=== PATIENT | female | born 1940 | race Caucasian/White ===

== ENCOUNTER 2021-12-09 06:24 | Observation (INO) | payer MEDICARE ==
[2021-12-09 07:58] LABS: #Basophils 0.1 thou/uL (0.0-0.2); #Monocytes 0.7 thou/uL (0.11-0.59); #Neutrophils 13.8 thou/uL (1.40-6.50); %Basophils 0.4 % (0.0-1.0); %Eosinophils 0.2 % (0.0-10.0); %Lymphocytes 6.3 % (21.0-51.0); %Monocytes 4.8 % (0.0-10.0); %Neutrophils 88.4 % (42.0-75.0); Hemoglobin 12.4 g/dL (12.0-16.0); Mean Corpuscular HGB CONC 33.5 g/dL (32.0-36.0); Mean Corpuscular Hemoglobin 34.1 pg (27.0-31.0); Mean Platelet Volume 8.9 fL (7.4-10.4); Platelet Count 259 thou/uL (130-400); RBC Distribution Width 11.1 % (11.5-14.5); Red Blood Cell (RBC) Count 3.64 mill/uL (4.20-5.40); White Blood Cell (WBC) Count 15.6 thou/uL (4.8-10.8)
[2021-12-09] MEDS ORDERED: Acetaminophen 500 MG TAB ONE (08:03)
[2021-12-09] MEDS ORDERED: Boostrix 0.5 ML (Tdap) VIAL ONE (08:03)
[2021-12-09 08:09] LABS: PTT 24.4 sec (22.9-36.1); Prothrombin Time 13.6 sec (12.0-14.7)
[2021-12-09 09:24] LABS: ALT (SGPT) 9 U/L (8-55); AST (SGOT) 13 U/L (5-34); Albumin 3.9 g/dL (3.4-4.8); Alkaline Phosphatase 87 U/L (40-110); Anion Gap 22 mmol/L (10-20); BUN (Urea Nitrogen) 17 mg/dL (9.8-20.1); Bilirubin, Total 0.3 mg/dL (0.2-1.2); Calc. Creatinine Clearance 0 mL/min (70-130); Carbon Dioxide 18 mmol/L (23-31); Chloride 101 mmol/L (98-107); Globulin 2.9 g/dL (2.4-3.5); Glucose 137 mg/dL (83-110); Potassium 3.6 mmol/L (3.5-5.1); Protein, Total 6.8 g/dL (5.8-8.1); Sodium 137 mmol/L (136-145)
[2021-12-09] MEDS ORDERED: Acetaminophen 325 MG TAB PO PRN (10:25)
[2021-12-09] MEDS ORDERED: Ondansetron PF 4 MG/2 ML Vial IVP PRN (10:25)
[2021-12-09] MEDS ORDERED: Lorazepam 2 MG/ML VIAL SLOW IVP PRN (10:27)
[2021-12-09] MEDS ORDERED: Lactated Ringer's 1,000 ML IV SCH (10:30)
[2021-12-09 11:05] LABS: Troponin I Less than 0.010 ng/mL (< 0.028)
[2021-12-09 15:14] LABS: Troponin I Less than 0.010 ng/mL (< 0.028)
[2021-12-09 15:51] VITALS: BMI 27.0
[2021-12-09] MEDS ORDERED: FLU VACC QS2021-22(65YR UP)/PF 240 MCG/0.7 ML SYRINGE IM ONE (16:30)
[2021-12-09] MEDS: Verapamil 120 MG TAB PO SCH (20:08)
[2021-12-10 04:53] LABS: Anion Gap 8 mmol/L (10-20); BUN (Urea Nitrogen) 13 mg/dL (9.8-20.1); Calc. Creatinine Clearance 83 mL/min (70-130); Calcium 8.4 mg/dL (7.8-10.44); Carbon Dioxide 25 mmol/L (23-31); Chloride 108 mmol/L (98-107); Glucose 99 mg/dL (83-110); Sodium 137 mmol/L (136-145)
[2021-12-10 05:08] LABS: Band 1 % (5-11); Hemoglobin 10.3 g/dL (12.0-16.0); Hypochromia SLIGHT = 6-15 cells (100X) (0-5/hpf); Lymphocytes 21 % (21-51); MDiff Complete? YES; Macrocytosis SLIGHT = 6-15 cells (100X) (0-5/hpf); Mean Corpuscular HGB CONC 34.2 g/dL (32.0-36.0); Mean Corpuscular Hemoglobin 34.6 pg (27.0-31.0); Mean Platelet Volume 9.4 fL (7.4-10.4); Monocytes 2 % (0-10); Neutrophil 76 % (42-75); Platelet Count 217 thou/uL (130-400); Platelet Morphology Comment Appears Adequate; RBC Distribution Width 11.1 % (11.5-14.5); Red Blood Cell (RBC) Count 2.97 mill/uL (4.20-5.40); White Blood Cell (WBC) Count 7.1 thou/uL (4.8-10.8)
[2021-12-10] MEDS: Verapamil 120 MG TAB PO SCH (07:40)
[2021-12-10] MEDS ORDERED: Folic Acid 1 MG TAB PO SCH (09:00)
[2021-12-10] MEDS ORDERED: Tamsulosin HCl 0.4 MG CAP PO SCH (09:00)
[2021-12-10] MEDS ORDERED: Furosemide 20 MG TAB PO SCH (09:00)
[2021-12-10] MEDS ORDERED: Thiamine 100 MG TAB PO SCH (09:00)
[2021-12-10] MEDS ORDERED: Losartan 25 MG TAB PO SCH (09:00)
[2021-12-10] MEDS ORDERED: Multivit, Therapeutic 1 TAB PO SCH (09:00)
[2021-12-10 11:49] LABS: SARS-CoV-2 PCR by NAA Indeterminate (NotDetected)
[2021-12-10 12:49] VITALS: BP 148/65; TEMP 97.5
[2021-12-10] MEDS ORDERED: Fioricet 325/50/40 mg Tablet PO SCH (15:15)
== END 2021-12-10 16:23 | disposition home health service (06) ==
LOC: ERS 06:24 → ERHOLD 10:13 → 2SW 15:27
PROVIDERS: ADMIT Internal Medicine; ATTEND Physician Assistant Medical
DX: R55 Syncope and collapse (principal); D75.89 Other specified diseases of blood and blood-forming organs; I10 Essential (primary) hypertension; R04.0 Epistaxis; M43.12 Spondylolisthesis, cervical region; M25.78 Osteophyte, vertebrae; M48.02 Spinal stenosis, cervical region; I08.1 Rheumatic disorders of both mitral and tricuspid valves; Z79.810 Long term (current) use of selective estrogen receptor modulators (SERMs); Z79.899 Other long term (current) drug therapy; Z20.822 Contact with and (suspected) exposure to COVID-19; W19.XXXA Unspecified fall, initial encounter
CPT/HCPCS: 70450; 70486; 71045; 72125; 73030; 80048; 80053; 80307; 84484 ×2; 85007; 85025; 85027; 85610; 85730; 90471; 90715; 93005; 93306; 94760; 97139 ×2; 97530; 99285; G0378 ×3; U0003; U0005; 36415; 36416; J7120

== ENCOUNTER 2022-11-15 04:17 | Inpatient (IN) | payer MEDICARE ==
[2022-11-15] MEDS ORDERED: Acetaminophen 500 MG TAB ONE (04:30)
[2022-11-15] MEDS ORDERED: Fentanyl 100 MCG/2 ML VIAL ONE (05:49)
[2022-11-15 05:51] LABS: #Basophils 0.1 thou/uL (0.0-0.2); #Eosinphils 0.1 thou/uL (0.0-0.7); #Lymphocytes 1.8 thou/uL (1.20-3.40); #Monocytes 0.5 thou/uL (0.11-0.59); #Neutrophils 5.9 thou/uL (1.40-6.50); %Basophils 0.9 % (0.0-1.0); %Eosinophils 0.8 % (0.0-10.0); %Lymphocytes 21.5 % (21.0-51.0); %Monocytes 5.9 % (0.0-10.0); Hemoglobin 13.7 g/dL (12.0-16.0); Mean Corpuscular HGB CONC 33.9 g/dL (32.0-36.0); Mean Corpuscular Hemoglobin 33.6 pg (27.0-31.0); Mean Corpuscular Volume 99.3 fl (78.0-98.0); Platelet Count 256 10x3/uL (130-400); RBC Distribution Width 11.5 % (11.5-14.5); Red Blood Cell (RBC) Count 4.07 mill/uL (4.20-5.40); White Blood Cell (WBC) Count 8.3 10x3/uL (4.8-10.8)
[2022-11-15 06:08] LABS: INR-International Normal Ratio 0.9; Prothrombin Time 12.5 sec (12.0-14.7)
[2022-11-15 06:09] LABS: PTT 23.2 sec (22.9-36.1)
[2022-11-15 06:12] LABS: ALT (SGPT) 9 U/L (8-55); AST (SGOT) 13 U/L (5-34); Albumin 3.9 g/dL (3.4-4.8); Alkaline Phosphatase 100 U/L (40-110); Anion Gap 14 mmol/L (10-20); BUN (Urea Nitrogen) 14 mg/dL (9.8-20.1); Bilirubin, Total 0.2 mg/dL (0.2-1.2); Calc. Creatinine Clearance 0 mL/min (70-130); Calcium 9.2 mg/dL (7.8-10.44); Carbon Dioxide 21 mmol/L (23-31); Chloride 107 mmol/L (98-107); Estimated GFR 88; Globulin 3.1 g/dL (2.4-3.5); Glucose 116 mg/dL (83-110); Potassium 4.1 mmol/L (3.5-5.1); Sodium 138 mmol/L (136-145)
[2022-11-15] MEDS ORDERED: Famotidine/PF 20 mg/2ml Vial ONE ×2 (08:57→09:29)
[2022-11-15 12:35] LABS: Troponin I Less than 0.010 ng/mL (< 0.028)
[2022-11-15 14:21] VITALS: BMI 25.3
[2022-11-15] MEDS ORDERED: Ondansetron PF 4 MG/2 ML Vial IVP PRN (14:43)
[2022-11-15] MEDS ORDERED: Ondansetron ODT 4 MG TAB PO PRN ×2 (14:43→14:57)
[2022-11-15] MEDS ORDERED: Acetaminophen 650 MG Suppository PR PRN (14:43)
[2022-11-15] MEDS ORDERED: Lorazepam 2 MG/ML VIAL IM PRN (14:57)
[2022-11-15] MEDS ORDERED: Lorazepam 1 MG TAB PO PRN (14:57)
[2022-11-15] MEDS ORDERED: Lorazepam 1 MG TAB PO SCH (15:00)
[2022-11-15] MEDS ORDERED: Electrolyte Replacement Protocol 1 EACH FS SCH (15:00)
[2022-11-15] MEDS ORDERED: Electrolyte Replacement Protocol FS PRN (15:30)
[2022-11-15 15:52] LABS: Troponin I Less than 0.010 ng/mL (< 0.028)
[2022-11-15] MEDS: Thiamine HCl 200 MG/2 ML VIAL SLOW IVP SCH (15:58)
[2022-11-15] MEDS: Acetaminophen 325 MG TAB PO PRN (18:39)
[2022-11-15 22:37] LABS: Amphetamine Not Detected (NotDetected); Barbiturates Screen Not Detected (NotDetected); Benzodiazepine Screen Not Detected (NotDetected); Cocaine Metabolite Screen Not Detected (NotDetected); Methadone Not Detected (NotDetected); Methamphetamine Not Detected (NotDetected); Opiate Screen Not Detected (NotDetected); Oxycodone Screen Not Detected (NotDetected); Phencyclidine (PCP) Not Detected (NotDetected); THC/Cannabinoid Screen Not Detected (NotDetected); Tricyclic Screen Not Detected (NotDetected)
[2022-11-15] MEDS ORDERED: Senokot S 8.6-50 MG TAB PO PRN (23:54)
[2022-11-16] MEDS: Acetaminophen 325 MG TAB PO PRN (00:04)
[2022-11-16 06:21] LABS: #Eosinphils 0.1 thou/uL (0.0-0.7); #Lymphocytes 2.1 thou/uL (1.20-3.40); #Monocytes 0.7 thou/uL (0.11-0.59); #Neutrophils 5.5 thou/uL (1.40-6.50); %Basophils 0.2 % (0.0-1.0); %Eosinophils 0.6 % (0.0-10.0); %Lymphocytes 24.7 % (21.0-51.0); %Monocytes 8.3 % (0.0-10.0); %Neutrophils 66.2 % (42.0-75.0); Hemoglobin 11.5 g/dL (12.0-16.0); Mean Corpuscular HGB CONC 34.2 g/dL (32.0-36.0); Mean Corpuscular Hemoglobin 33.7 pg (27.0-31.0); Mean Corpuscular Volume 98.6 fl (78.0-98.0); Platelet Count 206 10x3/uL (130-400); RBC Distribution Width 11.3 % (11.5-14.5); Red Blood Cell (RBC) Count 3.41 mill/uL (4.20-5.40); White Blood Cell (WBC) Count 8.3 10x3/uL (4.8-10.8)
[2022-11-16 06:39] LABS: Anion Gap 9 mmol/L (10-20); BUN (Urea Nitrogen) 11 mg/dL (9.8-20.1); Calc. Creatinine Clearance 80 mL/min (70-130); Calcium 8.6 mg/dL (7.8-10.44); Carbon Dioxide 23 mmol/L (23-31); Chloride 109 mmol/L (98-107); Estimated GFR 91; Glucose 105 mg/dL (83-110); Sodium 137 mmol/L (136-145)
[2022-11-16] MEDS: Folic Acid 1 MG TAB PO SCH (09:13)
[2022-11-16] MEDS: Multivit, Therapeutic 1 TAB PO SCH (09:13)
[2022-11-16 10:57] LABS: Syphilis Antibody Nonreactive (Nonreactive); Syphilis Antibody Index 0.01 S/CO (<1.00 Non-Reactive)
[2022-11-16] MEDS ORDERED: Lorazepam 1 MG TAB PO PRN (14:57)
[2022-11-16] MEDS: Thiamine HCl 200 MG/2 ML VIAL SLOW IVP SCH (16:30)
[2022-11-17] MEDS: Acetaminophen 325 MG TAB PO PRN (04:49)
[2022-11-17] MEDS ORDERED: Midazolam HCl 2 mg/2 ml Vial ONE (06:22)
[2022-11-17] MEDS ORDERED: fentaNYL PF 100 MCG/2 ML SYRINGE ONE (06:22)
[2022-11-17] MEDS ORDERED: Bupivacaine PF 0.5% 30 ML VIAL ONE (06:45)
[2022-11-17] MEDS ORDERED: PROPOFOL 200 MG/20 ML VIAL ONE (07:14)
[2022-11-17] MEDS ORDERED: Lidocaine 1% PF 5 ML VIAL ONE (07:14)
[2022-11-17] MEDS ORDERED: Dexamethasone 20 MG/5 ML VIAL ONE (07:14)
[2022-11-17] MEDS ORDERED: Ondansetron PF 4 MG/2 ML Vial ONE (07:14)
[2022-11-17] MEDS ORDERED: Bupivacaine HCl 0.5%/Epinephrine 1:200,000/PF 30 ml Vial ONE (07:14)
[2022-11-17] MEDS ORDERED: CEFAZOLIN 2 GM VIAL ONE (07:22)
[2022-11-17] MEDS ORDERED: Sodium Chloride 0.9% 100 ML ONE (07:22)
[2022-11-17] MEDS ORDERED: Ropivacaine 0.2% 550 ML 550 ML NERVE BLCK SCH (08:30)
[2022-11-17] MEDS ORDERED: Promethazine HCl 25 MG/ML VIAL IM PRN ×2 (08:30→09:26)
[2022-11-17] MEDS ORDERED: Ondansetron PF 4 MG/2 ML Vial IVP PRN (08:30)
[2022-11-17] MEDS ORDERED: Zolpidem Tartrate 5 MG TAB PO PRN (08:30)
[2022-11-17] MEDS ORDERED: traMADol HCl 50 MG TAB PO PRN ×2 (08:30)
[2022-11-17] MEDS ORDERED: HYDROcodone/Acetaminophen 10/325 mg Tablet PO PRN ×2 (08:30)
[2022-11-17] MEDS ORDERED: Ketorolac Tromethamine 30 MG/ML VIAL IVP PRN (09:26)
[2022-11-17] MEDS ORDERED: Ondansetron HCl/PF 4 MG/2 ML Vial IVP PRN (09:26)
[2022-11-17] MEDS ORDERED: Ketorolac Tromethamine 30 MG/ML VIAL ONE (09:29)
[2022-11-17] MEDS ORDERED: CEFAZOLIN 2 GM in Sodium Chloride 0.9% 100 ML IVPB SCH (11:00)
[2022-11-17] MEDS ORDERED: Furosemide 20 MG TAB PO PRN (14:54)
[2022-11-17] MEDS ORDERED: Fioricet 325/50/40 mg Tablet PO PRN (14:54)
[2022-11-17] MEDS ORDERED: Lorazepam 1 MG TAB PO PRN (14:57)
[2022-11-17] MEDS ORDERED: Lorazepam 0.5 MG TAB PO SCH (15:00)
[2022-11-17] MEDS: Multivit, Therapeutic 1 TAB PO SCH (15:32)
[2022-11-17] MEDS: Folic Acid 1 MG TAB PO SCH (15:33)
[2022-11-17] MEDS: Thiamine HCl 200 MG/2 ML VIAL SLOW IVP SCH (15:33)
[2022-11-17] MEDS: CEFAZOLIN 2 GM in Sodium Chloride 0.9% 100 ML IVPB SCH ×2 (15:34→21:07)
[2022-11-17] MEDS: Verapamil 120 MG TAB PO SCH (21:33)
[2022-11-18 07:12] LABS: #Eosinphils 0.1 thou/uL (0.0-0.7); #Lymphocytes 2.4 thou/uL (1.20-3.40); #Monocytes 0.9 thou/uL (0.11-0.59); #Neutrophils 6.9 thou/uL (1.40-6.50); %Basophils 0.1 % (0.0-1.0); %Eosinophils 0.8 % (0.0-10.0); %Monocytes 9.1 % (0.0-10.0); Hemoglobin 10.5 g/dL (12.0-16.0); Mean Corpuscular HGB CONC 33.7 g/dL (32.0-36.0); Mean Corpuscular Hemoglobin 33.8 pg (27.0-31.0); Mean Platelet Volume 9.3 fL (7.4-10.4); Platelet Count 218 10x3/uL (130-400); RBC Distribution Width 11.2 % (11.5-14.5); White Blood Cell (WBC) Count 10.3 10x3/uL (4.8-10.8)
[2022-11-18 07:32] LABS: Anion Gap 10 mmol/L (10-20); BUN (Urea Nitrogen) 19 mg/dL (9.8-20.1); Calc. Creatinine Clearance 74 mL/min (70-130); Calcium 8.2 mg/dL (7.8-10.44); Carbon Dioxide 23 mmol/L (23-31); Chloride 106 mmol/L (98-107); Estimated GFR 89; Glucose 89 mg/dL (83-110); Potassium 3.7 mmol/L (3.5-5.1); Sodium 135 mmol/L (136-145)
[2022-11-18] MEDS: Polyethylene Glycol 3350 17 GM Packet PO SCH (08:51)
[2022-11-18] MEDS: Raloxifene 60 MG TAB PO SCH (08:52)
[2022-11-18] MEDS: Verapamil 120 MG TAB PO SCH ×2 (08:52→21:03)
[2022-11-18] MEDS: Multivit, Therapeutic 1 TAB PO SCH (08:52)
[2022-11-18] MEDS: Losartan 25 MG TAB PO SCH (08:52)
[2022-11-18] MEDS: Folic Acid 1 MG TAB PO SCH (08:52)
[2022-11-18] MEDS: Thiamine 100 MG TAB PO SCH (08:52)
[2022-11-18] MEDS: Tamsulosin HCl 0.4 MG CAP PO SCH (08:52)
[2022-11-18] MEDS: Acetaminophen 325 MG TAB PO PRN ×2 (12:51→21:13)
[2022-11-18] MEDS ORDERED: Lorazepam 0.5 MG TAB PO PRN (14:57)
[2022-11-19] MEDS: Multivit, Therapeutic 1 TAB PO SCH (08:40)
[2022-11-19] MEDS: Folic Acid 1 MG TAB PO SCH (08:40)
[2022-11-19] MEDS: Tamsulosin HCl 0.4 MG CAP PO SCH (08:40)
[2022-11-19] MEDS: Losartan 25 MG TAB PO SCH (08:40)
[2022-11-19] MEDS: Polyethylene Glycol 3350 17 GM Packet PO SCH (08:40)
[2022-11-19] MEDS: Thiamine 100 MG TAB PO SCH (08:40)
[2022-11-19] MEDS: Verapamil 120 MG TAB PO SCH ×2 (08:40→19:54)
[2022-11-19] MEDS: Acetaminophen 325 MG TAB PO PRN ×2 (08:41→19:54)
[2022-11-19] MEDS: Raloxifene 60 MG TAB PO SCH (08:43)
[2022-11-20] MEDS: Multivit, Therapeutic 1 TAB PO SCH (08:56)
[2022-11-20] MEDS: Thiamine 100 MG TAB PO SCH (08:56)
[2022-11-20] MEDS: Polyethylene Glycol 3350 17 GM Packet PO SCH (08:56)
[2022-11-20] MEDS: Tamsulosin HCl 0.4 MG CAP PO SCH (08:56)
[2022-11-20] MEDS: Verapamil 120 MG TAB PO SCH ×2 (08:56→20:02)
[2022-11-20] MEDS: Raloxifene 60 MG TAB PO SCH (08:57)
[2022-11-20] MEDS: Folic Acid 1 MG TAB PO SCH (08:57)
[2022-11-20] MEDS: Losartan 25 MG TAB PO SCH (08:57)
[2022-11-20] MEDS ORDERED: Acetaminophen 500 MG TAB PO SCH (11:15)
[2022-11-20] MEDS: Acetaminophen 325 MG TAB PO PRN (20:02)
[2022-11-21] MEDS: Thiamine 100 MG TAB PO SCH (09:30)
[2022-11-21] MEDS: Acetaminophen 325 MG TAB PO PRN (09:30)
[2022-11-21] MEDS: Verapamil 120 MG TAB PO SCH ×2 (09:30→20:05)
[2022-11-21] MEDS: Folic Acid 1 MG TAB PO SCH (09:31)
[2022-11-21] MEDS: Losartan 25 MG TAB PO SCH (09:31)
[2022-11-21] MEDS: Polyethylene Glycol 3350 17 GM Packet PO SCH (09:32)
[2022-11-21] MEDS: Multivit, Therapeutic 1 TAB PO SCH (09:32)
[2022-11-21] MEDS: Tamsulosin HCl 0.4 MG CAP PO SCH (09:32)
[2022-11-21] MEDS: Raloxifene 60 MG TAB PO SCH (09:32)
[2022-11-21] MEDS: Furosemide 20 MG TAB PO SCH (13:50)
[2022-11-21] MEDS: Heparin 5,000 UNITS/ML VIAL SC SCH (20:07)
[2022-11-22 07:13] LABS: Anion Gap 15 mmol/L (10-20); BUN (Urea Nitrogen) 14 mg/dL (9.8-20.1); Calc. Creatinine Clearance 79 mL/min (70-130); Calcium 8.9 mg/dL (7.8-10.44); Carbon Dioxide 24 mmol/L (23-31); Chloride 102 mmol/L (98-107); Estimated GFR 90; Glucose 100 mg/dL (83-110); Sodium 137 mmol/L (136-145)
[2022-11-22 07:14] LABS: #Eosinphils 0.1 thou/uL (0.0-0.7); #Lymphocytes 1.7 thou/uL (1.20-3.40); #Monocytes 0.7 thou/uL (0.11-0.59); %Basophils 0.5 % (0.0-1.0); %Eosinophils 1.5 % (0.0-10.0); %Lymphocytes 20.1 % (21.0-51.0); %Monocytes 7.9 % (0.0-10.0); Mean Corpuscular Hemoglobin 33.8 pg (27.0-31.0); Mean Corpuscular Volume 99.5 fl (78.0-98.0); Platelet Count 282 10x3/uL (130-400); RBC Distribution Width 11.3 % (11.5-14.5); Red Blood Cell (RBC) Count 3.56 mill/uL (4.20-5.40); White Blood Cell (WBC) Count 8.6 10x3/uL (4.8-10.8)
[2022-11-22] MEDS: Heparin 5,000 UNITS/ML VIAL SC SCH (08:53)
[2022-11-22] MEDS: Verapamil 120 MG TAB PO SCH (08:54)
[2022-11-22] MEDS: Thiamine 100 MG TAB PO SCH (08:54)
[2022-11-22] MEDS: Folic Acid 1 MG TAB PO SCH (08:54)
[2022-11-22] MEDS: Losartan 25 MG TAB PO SCH (08:54)
[2022-11-22] MEDS: Furosemide 20 MG TAB PO SCH (08:54)
[2022-11-22] MEDS: Multivit, Therapeutic 1 TAB PO SCH (08:54)
[2022-11-22] MEDS: Tamsulosin HCl 0.4 MG CAP PO SCH (08:54)
[2022-11-22] MEDS: Raloxifene 60 MG TAB PO SCH (08:55)
[2022-11-22] MEDS: Polyethylene Glycol 3350 17 GM Packet PO SCH (08:55)
[2022-11-22 16:26] VITALS: BP 116/68; TEMP 98
== END 2022-11-22 17:29 | DRG 494 ==
LOC: ERS 04:17 → INTOOBSV 13:54 → T4-A 13:54 → OBSVTOIN 11-17 13:19
PROVIDERS: ADMIT Hospitalist; ATTEND Hospitalist
PROC: 0QSJ04Z Reposition Right Fibula with Internal Fixation Device, Open Approach (ICD-10-PCS; principal; 2022-11-17)
DX: S82.851A Displaced trimalleolar fracture of right lower leg, initial encounter for closed fracture (principal); Z66 Do not resuscitate; Z51.5 Encounter for palliative care; Z20.822 Contact with and (suspected) exposure to COVID-19; I10 Essential (primary) hypertension; R29.6 Repeated falls; Z60.2 Problems related to living alone; K21.9 Gastro-esophageal reflux disease without esophagitis; F10.10 Alcohol abuse, uncomplicated; K59.00 Constipation, unspecified; W18.30XA Fall on same level, unspecified, initial encounter; Y92.129 Unspecified place in nursing home as the place of occurrence of the external cause; Z71.41 Alcohol abuse counseling and surveillance of alcoholic; Z91.81 History of falling; Z88.5 Allergy status to narcotic agent; Z79.899 Other long term (current) drug therapy
CPT/HCPCS: 27810; 36415; 71045; 80048; 80053; 80306; 84484; 85025; 85610; 85730; 86780; 87811; 93005; 96374; 96375; 96376; A4306; C1713; G0378; J1100; J1644; J1885; J2250; J2405; J2704; J2795; J3010; J3411; J3490; S0020; S0028; U0003; U0005

== ENCOUNTER 2024-03-17 14:59 | Inpatient (IN) | payer MEDICARE ==
[2024-03-17 16:35] LABS: #Basophils Less than 0.03 10x3/uL (0.0-0.2); #Eosinphils Less than 0.03 10x3/uL (0.0-0.7); %Basophils 0.1 % (0.0-1.0); %Monocytes 1.3 % (0.0-10.0); %Neutrophils 92.8 % (42.0-75.0); Hematocrit 29.4 % (36.0-47.0); Hemoglobin 9.7 g/dL (12.0-16.0); Mean Corpuscular Hemoglobin 31.7 pg (27.0-31.0); Mean Corpuscular Volume 96.1 fL (78.0-98.0); Mean Platelet Volume 10.5 fL (7.4-10.4); Platelet Count 707 10x3/uL (130-400); RBC Distribution Width 13.6 % (11.5-14.5); Red Blood Cell (RBC) Count 3.06 mill/uL (4.20-5.40)
[2024-03-17 16:53] LABS: ALT (SGPT) 9 U/L (8-55); AST (SGOT) 12 U/L (5-34); Albumin 2.5 g/dL (3.4-4.8); Alkaline Phosphatase 101 U/L (40-110); Anion Gap 22 mmol/L (10-20); BUN (Urea Nitrogen) 50 mg/dL (9.8-20.1); Bilirubin, Total 0.4 mg/dL (0.2-1.2); Calc. Creatinine Clearance 0 mL/min (70-130); Calcium 9.6 mg/dL (7.8-10.44); Carbon Dioxide 19 mmol/L (23-31); Chloride 95 mmol/L (98-107); Estimated GFR 31; Globulin 4.1 g/dL (2.4-3.5); Glucose 155 mg/dL (83-110); Lipase 4 U/L (8-78); Magnesium 2.3 mg/dL (1.6-2.6); Potassium 5.4 mmol/L (3.5-5.1); Protein, Total 6.6 g/dL (5.8-8.1); Sodium 131 mmol/L (136-145)
[2024-03-17 16:57] LABS: Troponin I Less than 0.010 ng/mL (< 0.028)
[2024-03-17] MEDS ORDERED: cefTRIAXone (ROCEPHIN) 2 GM VIAL ONE (18:12)
[2024-03-17] MEDS ORDERED: Fleet Saline Enema 133 ML BOT ONE (18:13)
[2024-03-17] MEDS ORDERED: Sodium Chloride 0.9% 100 ML ONE (18:14)
[2024-03-17 18:38] LABS: Bacteria/HPF 4+ HPF (None Seen); Bilirubin Negative (Negative); Blood, Urine 2+ (Negative); CAUTI Indications for Culture Pelvic or flank pain; Clarity Extra Turbid (Clear); Glucose, Urine (Dipstick) Normal (Negative); Ketone, Urine Negative (Negative); Leukocyte 500 Leu/uL (Negative); Nitrite Negative (Negative); Protein, Urine (Dipstick) 300 mg/dL (Neg-Trace); RBC/HPF Greater than 50 HPF (0-3); Specific Gravity, Urine 1.013 (1.002-1.036); Squamous Epithelial None Seen HPF (0-3); Urobilinogen 3 mg/dL (Less than 2); WBC/HPF Greater than 50 HPF (0-3)
[2024-03-17 18:50] LABS: Urine Culture Reflex Yes Yes
[2024-03-17] MEDS ORDERED: Ondansetron PF 4 MG/2 ML Vial IVP PRN (20:20)
[2024-03-17] MEDS: Sodium Chloride 0.9% 1,000 ML IV SCH (20:24)
[2024-03-17 20:30] VITALS: BMI 18.1
[2024-03-17] MEDS: Ondansetron ODT 4 MG TAB PO PRN (20:54)
[2024-03-17] MEDS: Bisacodyl 10 MG SUPP PR SCH (22:59)
[2024-03-18 00:41] LABS: Lactic Acid 0.6 mmol/L (0.5-2.2)
[2024-03-18 05:40] LABS: #Basophils 0.03 10x3/uL (0.0-0.2); #Eosinphils Less than 0.03 10x3/uL (0.0-0.7); %Basophils 0.2 % (0.0-1.0); %Lymphocytes 7.8 % (21.0-51.0); %Monocytes 5.4 % (0.0-10.0); %Neutrophils 85.8 % (42.0-75.0); Hematocrit 25.9 % (36.0-47.0); Hemoglobin 8.2 g/dL (12.0-16.0); Mean Corpuscular HGB CONC 31.7 g/dL (32.0-36.0); Mean Corpuscular Hemoglobin 31.1 pg (27.0-31.0); Mean Corpuscular Volume 98.1 fL (78.0-98.0); Mean Platelet Volume 10.4 fL (7.4-10.4); Platelet Count 597 10x3/uL (130-400); RBC Distribution Width 13.5 % (11.5-14.5); Red Blood Cell (RBC) Count 2.64 mill/uL (4.20-5.40)
[2024-03-18] MEDS: Bisacodyl 10 MG SUPP PR SCH (05:59)
[2024-03-18 06:12] LABS: Anion Gap 18 mmol/L (10-20); BUN (Urea Nitrogen) 54 mg/dL (9.8-20.1); Calc. Creatinine Clearance 27 mL/min (70-130); Calcium 8.7 mg/dL (7.8-10.44); Carbon Dioxide 15 mmol/L (23-31); Chloride 103 mmol/L (98-107); Estimated GFR 43; Glucose 98 mg/dL (83-110); Sodium 131 mmol/L (136-145)
[2024-03-18] MEDS ORDERED: Vancomycin Dose by Levels Sliding Scale (Wt <71) FS SCH (16:15)
[2024-03-18] MEDS: Sodium Chloride 0.9% 1,000 ML IV SCH (17:07)
[2024-03-18] MEDS: Vancomycin (BATCH) 1.25 GM in Premix 1 BAG IVPB SCH (17:07)
[2024-03-18] MEDS: Ferrous Sulfate 325 MG TAB PO SCH (17:12)
[2024-03-18] MEDS: cefTRIAXone\\ROCEPHIN 1 GM in Sodium Chloride 0.9% 100 ML IVPB SCH (17:30)
[2024-03-18] MEDS ORDERED: cefTRIAXone\\ROCEPHIN 1 GM in Sodium Chloride 0.9% 100 ML IVPB SCH (18:00)
[2024-03-18] MEDS ORDERED: Calcium Carbonate + Vit D 250 MG TAB PO SCH (21:00)
[2024-03-18] MEDS ORDERED: Vancomycin 1 GM in Premix 1 BAG IVPB SCH (21:00)
[2024-03-18] MEDS: Nystatin Powder 15 GM BOT TOP SCH (21:56)
[2024-03-18] MEDS: Tamsulosin HCl 0.4 MG CAP PO SCH (21:57)
[2024-03-18] MEDS: Calcium Carbonate + Vit D 250 MG TAB PO SCH (21:57)
[2024-03-18] MEDS: Mirtazapine 15 MG TAB PO SCH (21:57)
[2024-03-18 22:25] LABS: Actual Bicarbonate (HCO3a) 19.9 mEq/L (22-28); Base Excess (BEa) -4.1 mEq/L (-2.0 to +3.0); Calcium, Ionized (arterial) 1.12 mmol/L (1.12-1.30); Carboxyhemoglobin (COHb) 1.3 gm% (0.0-3.0); Hematocrit-ABG 20 % (36.0-47.0); Hemoglobin (Hb) 6.7 g/dL (12.0-16.0); O2 Tension (PaO2), arterial 135.4 mmHg (> 60.0); Potassium - ABG Lab 4.12 mmol/L (3.70-5.30); pH, Arterial 7.425 (7.35-7.45)
[2024-03-18 22:26] LABS: Puncture Site RBA
[2024-03-18 22:40] LABS: #Basophils Less than 0.03 10x3/uL (0.0-0.2); #Eosinphils Less than 0.03 10x3/uL (0.0-0.7); %Basophils 0.1 % (0.0-1.0); %Lymphocytes 10.4 % (21.0-51.0); %Monocytes 4.8 % (0.0-10.0); %Neutrophils 83.8 % (42.0-75.0); Hematocrit 24.5 % (36.0-47.0); Hemoglobin 7.5 g/dL (12.0-16.0); Mean Corpuscular HGB CONC 30.6 g/dL (32.0-36.0); Mean Corpuscular Hemoglobin 31.6 pg (27.0-31.0); Mean Corpuscular Volume 103.4 fL (78.0-98.0); Mean Platelet Volume 10.1 fL (7.4-10.4); Platelet Count 458 10x3/uL (130-400); RBC Distribution Width 13.6 % (11.5-14.5); Red Blood Cell (RBC) Count 2.37 mill/uL (4.20-5.40)
[2024-03-18 22:55] LABS: Troponin I Less than 0.010 ng/mL (< 0.028)
[2024-03-18 23:07] LABS: ALT (SGPT) Less than 5 U/L (8-55); AST (SGOT) 13 U/L (5-34); Albumin 1.9 g/dL (3.4-4.8); Alkaline Phosphatase 69 U/L (40-110); Anion Gap 15 mmol/L (10-20); BUN (Urea Nitrogen) 51 mg/dL (9.8-20.1); Bilirubin, Total 0.2 mg/dL (0.2-1.2); Calc. Creatinine Clearance 43 mL/min (70-130); Carbon Dioxide 16 mmol/L (23-31); Chloride 107 mmol/L (98-107); Estimated GFR 74; Globulin 2.9 g/dL (2.4-3.5); Glucose 72 mg/dL (83-110); Potassium 4.6 mmol/L (3.5-5.1); Protein, Total 4.8 g/dL (5.8-8.1); Sodium 133 mmol/L (136-145)
[2024-03-19] MEDS: Albumin 25% 25 GM (100 mL) BOT IVPB SCH (01:28)
[2024-03-19 05:43] LABS: #Basophils Less than 0.03 10x3/uL (0.0-0.2); #Eosinphils Less than 0.03 10x3/uL (0.0-0.7); %Basophils 0.1 % (0.0-1.0); %Eosinophils 0.1 % (0.0-10.0); %Lymphocytes 11.6 % (21.0-51.0); %Monocytes 4.6 % (0.0-10.0); Hematocrit 22.2 % (36.0-47.0); Hemoglobin 6.4 g/dL (12.0-16.0); Mean Corpuscular HGB CONC 28.8 g/dL (32.0-36.0); Mean Corpuscular Hemoglobin 30.8 pg (27.0-31.0); Mean Corpuscular Volume 106.7 fL (78.0-98.0); Mean Platelet Volume 10.1 fL (7.4-10.4); Platelet Count 371 10x3/uL (130-400); RBC Distribution Width 13.6 % (11.5-14.5); Red Blood Cell (RBC) Count 2.08 mill/uL (4.20-5.40)
[2024-03-19] MEDS ORDERED: Albumin 25% 25 GM (100 mL) BOT IVPB SCH (06:00)
[2024-03-19 06:02] LABS: Burr Cells SLIGHT = 2-5 cells HPF (0-1); Macrocytosis SLIGHT = 6-15 cells HPF (0-5); Platelet Adequacy Comment Platelets Normal; Poikilocytosis SLIGHT = 6-15 cells HPF (0-5); Polychromasia SLIGHT = 2-3 cells HPF (0-2)
[2024-03-19 06:12] LABS: Anion Gap 15 mmol/L (10-20); BUN (Urea Nitrogen) 40 mg/dL (9.8-20.1); Calc. Creatinine Clearance 50 mL/min (70-130); Calcium 7.5 mg/dL (7.8-10.44); Carbon Dioxide 14 mmol/L (23-31); Chloride 110 mmol/L (98-107); Estimated GFR 87; Glucose 54 mg/dL (83-110); Potassium 4.3 mmol/L (3.5-5.1); Sodium 135 mmol/L (136-145)
[2024-03-19] MEDS ORDERED: Glucagon 1 MG/ML KIT IM PRN (06:44)
[2024-03-19] MEDS ORDERED: Dextrose 5% in Water 1,000 ML IV PRN (06:44)
[2024-03-19] MEDS: Digoxin 0.5 MG/2 ML AMP SLOW IVP SCH (06:53)
[2024-03-19] MEDS: Dextrose 50% Abboject 50 ML SYRINGE SLOW IVP PRN (06:57)
[2024-03-19] MEDS: Ascorbic Acid 500 mg Chewable Tablet PO SCH (08:58)
[2024-03-19] MEDS: Cyanocobalamin (Vitamin B-12) 1,000 MCG TAB PO SCH (08:58)
[2024-03-19] MEDS: Thiamine 100 MG TAB PO SCH (08:58)
[2024-03-19] MEDS: Pantoprazole DR 40 MG TAB PO SCH (08:58)
[2024-03-19] MEDS: Folic Acid 1 MG TAB PO SCH (08:58)
[2024-03-19] MEDS: Multivitamin W/ Minerals 1 TAB PO SCH (09:34)
[2024-03-19 14:40] LABS: Vancomycin, Trough 11.6 ug/mL
[2024-03-19] MEDS: Vancomycin HCl 500 MG in Sodium Chloride 0.9% 100 ML IV SCH (15:14)
[2024-03-19] MEDS ORDERED: Vancomycin HCl 500 MG in Sodium Chloride 0.9% 100 ML IV SCH (16:45)
[2024-03-19] MEDS ORDERED: Vancomycin Dose by Levels Sliding Scale (Wt <71) FS SCH (17:00)
[2024-03-19] MEDS ORDERED: Vancomycin 1 GM in Premix 1 BAG IVPB SCH (23:00)
[2024-03-20] MEDS ORDERED: Vancomycin 1 GM in Premix 1 BAG IVPB SCH ×3 (01:00→18:00)
[2024-03-20] MEDS: Acetaminophen 325 MG TAB PO PRN (04:18)
[2024-03-20 04:28] LABS: #Basophils Less than 0.03 10x3/uL (0.0-0.2); #Eosinphils Less than 0.03 10x3/uL (0.0-0.7); %Basophils 0.2 % (0.0-1.0); %Eosinophils 0.1 % (0.0-10.0); %Lymphocytes 12.1 % (21.0-51.0); %Monocytes 4.8 % (0.0-10.0); %Neutrophils 78.7 % (42.0-75.0); Hematocrit 21.1 % (36.0-47.0); Hemoglobin 6.8 g/dL (12.0-16.0); Mean Corpuscular HGB CONC 32.2 g/dL (32.0-36.0); Mean Corpuscular Hemoglobin 30.4 pg (27.0-31.0); Mean Corpuscular Volume 94.2 fL (78.0-98.0); Mean Platelet Volume 9.8 fL (7.4-10.4); Platelet Count 329 10x3/uL (130-400); RBC Distribution Width 16.9 % (11.5-14.5); Red Blood Cell (RBC) Count 2.24 mill/uL (4.20-5.40)
[2024-03-20 04:46] LABS: Anion Gap 10 mmol/L (10-20); BUN (Urea Nitrogen) 27 mg/dL (9.8-20.1); Calc. Creatinine Clearance 68 mL/min (70-130); Calcium 7.6 mg/dL (7.8-10.44); Carbon Dioxide 18 mmol/L (23-31); Chloride 116 mmol/L (98-107); Estimated GFR 93; Glucose 73 mg/dL (83-110); Potassium 3.2 mmol/L (3.5-5.1); Sodium 141 mmol/L (136-145)
[2024-03-20] MEDS ORDERED: Electrolyte Replacement Protocol 1 EACH FS SCH (05:31)
[2024-03-20] MEDS: Potassium Chloride 20 MEQ TAB PO SCH (08:33)
[2024-03-20 11:53] LABS: Iron 82 ug/dL (50-170); Iron Binding Capacity, Total 74 mcg/dL (265-497)
[2024-03-20 12:32] LABS: Ferritin 701.92 ng/mL (10-291); Vitamin B12 Greater than 2000 pg/mL (211-911)
[2024-03-20 16:32] LABS: Hematocrit 29.2 % (36.0-47.0); Hemoglobin 9.6 g/dL (12.0-16.0); Mean Corpuscular HGB CONC 32.9 g/dL (32.0-36.0); Mean Corpuscular Hemoglobin 30.4 pg (27.0-31.0); Mean Corpuscular Volume 92.4 fL (78.0-98.0); Mean Platelet Volume 10.1 fL (7.4-10.4); Platelet Count 348 10x3/uL (130-400); RBC Distribution Width 17.5 % (11.5-14.5); Red Blood Cell (RBC) Count 3.16 mill/uL (4.20-5.40)
[2024-03-20] MEDS ORDERED: Meropenem 1 GM in Sodium Chloride 0.9% 100 ML IVPB SCH (18:45)
[2024-03-20] MEDS: Meropenem 1 GM in Sodium Chloride 0.9% 100 ML IVPB SCH (18:46)
[2024-03-21] MEDS: Meropenem 1 GM in Sodium Chloride 0.9% 100 ML IVPB SCH ×2 (01:45→15:45)
[2024-03-21 04:38] LABS: #Basophils 0.04 10x3/uL (0.0-0.2); #Eosinphils Less than 0.03 10x3/uL (0.0-0.7); %Basophils 0.2 % (0.0-1.0); %Eosinophils 0.1 % (0.0-10.0); %Lymphocytes 14.1 % (21.0-51.0); %Neutrophils 79.6 % (42.0-75.0); Hematocrit 30.3 % (36.0-47.0); Hemoglobin 10.1 g/dL (12.0-16.0); Mean Corpuscular HGB CONC 33.3 g/dL (32.0-36.0); Mean Corpuscular Hemoglobin 30.3 pg (27.0-31.0); Platelet Count 370 10x3/uL (130-400); RBC Distribution Width 17.2 % (11.5-14.5); Red Blood Cell (RBC) Count 3.33 mill/uL (4.20-5.40)
[2024-03-21 05:03] LABS: Anion Gap 11 mmol/L (10-20); BUN (Urea Nitrogen) 23 mg/dL (9.8-20.1); Calc. Creatinine Clearance 75 mL/min (70-130); Calcium 7.5 mg/dL (7.8-10.44); Carbon Dioxide 16 mmol/L (23-31); Chloride 115 mmol/L (98-107); Estimated GFR 95; Glucose 72 mg/dL (83-110); Potassium 2.8 mmol/L (3.5-5.1); Sodium 139 mmol/L (136-145)
[2024-03-21] MEDS: Potassium Chloride 20 MEQ in Premix 1 BAG IVPB SCH ×2 (06:49→13:18)
[2024-03-21] MEDS ORDERED: PROPOFOL 20 ML ONE (10:41)
[2024-03-21] MEDS ORDERED: Lidocaine 1% PF 5 ML VIAL ONE (11:06)
[2024-03-21] MEDS ORDERED: PHENYLEPHRINE-NS 100 MCG/ML 10 ML SYRINGE ONE (11:06)
[2024-03-21] MEDS ORDERED: Esmolol 100 MG/10 ML VIAL ONE (11:09)
[2024-03-21] MEDS ORDERED: Iopamidol 370 76% 100 ML VIAL ONE (11:15)
[2024-03-21] MEDS: NS 0.9% w/ 20 MEQ KCL 1,000 ML/1,000 ML BAG IV SCH (18:47)
[2024-03-21] MEDS ORDERED: Potassium Chloride 20 MEQ TAB PO SCH (20:30)
[2024-03-21] MEDS: Sodium Chloride 0.9% 500 ML IV SCH ×2 (20:41→23:00)
[2024-03-21] MEDS: Albumin 25% 25 GM (100 mL) BOT IVPB SCH (20:41)
[2024-03-21] MEDS: Pantoprazole 40 MG VIAL IVP SCH (21:19)
[2024-03-21] MEDS ORDERED: NOREPINEPHRINE 8 MG/250 ML-D5W 250 ML IVPB SCH (22:00)
[2024-03-21 22:02] LABS: ALT (SGPT) 7 U/L (8-55); AST (SGOT) 22 U/L (5-34); Albumin 2.5 g/dL (3.4-4.8); Alkaline Phosphatase 61 U/L (40-110); Anion Gap 12 mmol/L (10-20); BUN (Urea Nitrogen) 17 mg/dL (9.8-20.1); Bilirubin, Total 0.6 mg/dL (0.2-1.2); Calc. Creatinine Clearance 70 mL/min (70-130); Calcium 7.1 mg/dL (7.8-10.44); Carbon Dioxide 14 mmol/L (23-31); Chloride 118 mmol/L (98-107); Estimated GFR 93; Globulin 1.9 g/dL (2.4-3.5); Glucose 88 mg/dL (83-110); Magnesium 1.4 mg/dL (1.6-2.6); Protein, Total 4.4 g/dL (5.8-8.1); Sodium 140 mmol/L (136-145)
[2024-03-21] MEDS ORDERED: Magnesium Sulfate 2 GM in Sodium Chloride 0.9% 250 ML 250 ML IVPB SCH (22:15)
[2024-03-21] MEDS: Magnesium 2 GM/50 ML(in water) 2 GM in Premix 1 BAG IVPB SCH (22:25)
[2024-03-21] MEDS: Sodium Bicarb 50 mEq/50 ML VIAL IVP SCH (22:26)
[2024-03-21 22:30] LABS: Actual Bicarbonate (HCO3v) 15.7 mEq/L (22-28); Base Excess -6.7 mEq/L (-2.0 to +3.0); Calcium, Ionized (venous) 1.01 mmol/L (1.16-1.32); Chloride (VBG) 113 mmol/L (98-106); Hematocrit-VBG 26 % (36.0-47.0); Hemoglobin (Hb) 8.8 g/dL (11.7-16.1); Potassium (VBG) 3.79 mmol/L (3.70-5.30); Sodium 138 mmol/L (133-146); pH (venous) 7.472 (7.32-7.43)
[2024-03-21 22:50] LABS: #Basophils 0.03 10x3/uL (0.0-0.2); %Basophils 0.3 % (0.0-1.0); %Eosinophils 0.3 % (0.0-10.0); %Lymphocytes 23.1 % (21.0-51.0); %Monocytes 4.4 % (0.0-10.0); Hematocrit 25.8 % (36.0-47.0); Hemoglobin 8.4 g/dL (12.0-16.0); Mean Corpuscular HGB CONC 32.6 g/dL (32.0-36.0); Mean Corpuscular Hemoglobin 30.3 pg (27.0-31.0); Mean Corpuscular Volume 93.1 fL (78.0-98.0); Mean Platelet Volume 10.1 fL (7.4-10.4); Platelet Count 254 10x3/uL (130-400); RBC Distribution Width 17.1 % (11.5-14.5); Red Blood Cell (RBC) Count 2.77 mill/uL (4.20-5.40)
[2024-03-21] MEDS: Acetaminophen 500 MG TAB PO SCH (22:58)
[2024-03-21] MEDS ORDERED: Bisacodyl 5 MG TAB PO PRN (22:59)
[2024-03-21] MEDS: Lactated Ringer's 1,000 ML IV SCH (23:11)
[2024-03-22] MEDS: Digoxin 0.5 MG/2 ML AMP SLOW IVP SCH (01:00)
[2024-03-22] MEDS: Sodium Bicarbonate 150 MEQ in Dextrose 5% in Water 1,000 ML IV SCH ×3 (01:48→03:18)
[2024-03-22] MEDS ORDERED: dilTIAZem 125 MG in Sodium Chloride 0.9% 100 ML IVPB SCH (02:00)
[2024-03-22 05:10] LABS: Legionella Urinary Ag Negative (Negative); Strep pneumo Urine Ag NEGATIVE (NEGATIVE)
[2024-03-22 05:49] LABS: #Basophils 0.04 10x3/uL (0.0-0.2); %Basophils 0.4 % (0.0-1.0); %Eosinophils 0.7 % (0.0-10.0); %Lymphocytes 21.8 % (21.0-51.0); %Monocytes 4.5 % (0.0-10.0); %Neutrophils 70.1 % (42.0-75.0); Hematocrit 27.3 % (36.0-47.0); Hemoglobin 8.9 g/dL (12.0-16.0); Mean Corpuscular HGB CONC 32.6 g/dL (32.0-36.0); Mean Corpuscular Hemoglobin 29.5 pg (27.0-31.0); Mean Corpuscular Volume 90.4 fL (78.0-98.0); Mean Platelet Volume 10.4 fL (7.4-10.4); Platelet Count 295 10x3/uL (130-400); RBC Distribution Width 17.1 % (11.5-14.5); Red Blood Cell (RBC) Count 3.02 mill/uL (4.20-5.40)
[2024-03-22 06:07] LABS: Anion Gap 11 mmol/L (10-20); BUN (Urea Nitrogen) 15 mg/dL (9.8-20.1); Calc. Creatinine Clearance 78 mL/min (70-130); Calcium 7.1 mg/dL (7.8-10.44); Carbon Dioxide 18 mmol/L (23-31); Chloride 117 mmol/L (98-107); Estimated GFR 94; Glucose 79 mg/dL (83-110); Magnesium 1.8 mg/dL (1.6-2.6); Potassium 3.6 mmol/L (3.5-5.1); Sodium 142 mmol/L (136-145)
[2024-03-22] MEDS: Magnesium 2 GM/50 ML(in water) 2 GM in Premix 1 BAG IVPB SCH (06:36)
[2024-03-22] MEDS: Ferrous Sulfate 325 MG TAB PO SCH (08:55)
[2024-03-22] MEDS: Verapamil 120 MG TAB PO SCH (09:11)
[2024-03-22] MEDS: Metoprolol Tartrate 25 MG TAB PO SCH (09:12)
[2024-03-22 20:24] LABS: Anion Gap 13 mmol/L (10-20); BUN (Urea Nitrogen) 13 mg/dL (9.8-20.1); Calc. Creatinine Clearance 75 mL/min (70-130); Calcium 7.2 mg/dL (7.8-10.44); Carbon Dioxide 20 mmol/L (23-31); Chloride 113 mmol/L (98-107); Estimated GFR 93; Glucose 121 mg/dL (83-110); Potassium 3.8 mmol/L (3.5-5.1); Sodium 142 mmol/L (136-145)
[2024-03-23 03:52] LABS: #Basophils 0.03 10x3/uL (0.0-0.2); %Basophils 0.2 % (0.0-1.0); %Eosinophils 0.8 % (0.0-10.0); %Lymphocytes 23.5 % (21.0-51.0); %Monocytes 5.2 % (0.0-10.0); %Neutrophils 67.6 % (42.0-75.0); Hematocrit 33.6 % (36.0-47.0); Hemoglobin 10.9 g/dL (12.0-16.0); Mean Corpuscular HGB CONC 32.4 g/dL (32.0-36.0); Mean Corpuscular Hemoglobin 30.4 pg (27.0-31.0); Mean Corpuscular Volume 93.9 fL (78.0-98.0); Mean Platelet Volume 10.3 fL (7.4-10.4); Platelet Count 309 10x3/uL (130-400); RBC Distribution Width 16.9 % (11.5-14.5); Red Blood Cell (RBC) Count 3.58 mill/uL (4.20-5.40)
[2024-03-23 04:15] LABS: Anion Gap 14 mmol/L (10-20); BUN (Urea Nitrogen) 12 mg/dL (9.8-20.1); Calc. Creatinine Clearance 72 mL/min (70-130); Calcium 7.5 mg/dL (7.8-10.44); Carbon Dioxide 19 mmol/L (23-31); Chloride 114 mmol/L (98-107); Estimated GFR 92; Glucose 94 mg/dL (83-110); Magnesium 2.2 mg/dL (1.6-2.6); Potassium 4.3 mmol/L (3.5-5.1); Sodium 143 mmol/L (136-145)
[2024-03-23] MEDS: Lactated Ringer's 1,000 ML IV SCH (22:48)
[2024-03-24 04:24] LABS: #Basophils 0.06 10x3/uL (0.0-0.2); %Basophils 0.6 % (0.0-1.0); %Eosinophils 2.5 % (0.0-10.0); %Lymphocytes 27.6 % (21.0-51.0); %Monocytes 6.8 % (0.0-10.0); %Neutrophils 59.2 % (42.0-75.0); Hematocrit 29.3 % (36.0-47.0); Hemoglobin 9.7 g/dL (12.0-16.0); Mean Corpuscular HGB CONC 33.1 g/dL (32.0-36.0); Mean Corpuscular Volume 90.7 fL (78.0-98.0); Mean Platelet Volume 10.5 fL (7.4-10.4); Platelet Count 309 10x3/uL (130-400); RBC Distribution Width 16.4 % (11.5-14.5); Red Blood Cell (RBC) Count 3.23 mill/uL (4.20-5.40)
[2024-03-24 04:41] LABS: Anion Gap 10 mmol/L (10-20); BUN (Urea Nitrogen) 9 mg/dL (9.8-20.1); Calc. Creatinine Clearance 85 mL/min (70-130); Calcium 7.1 mg/dL (7.8-10.44); Carbon Dioxide 21 mmol/L (23-31); Chloride 111 mmol/L (98-107); Estimated GFR 95; Glucose 64 mg/dL (83-110); Magnesium 1.8 mg/dL (1.6-2.6); Potassium 2.8 mmol/L (3.5-5.1); Sodium 139 mmol/L (136-145)
[2024-03-24] MEDS: Magnesium 2 GM/50 ML(in water) 2 GM in Premix 1 BAG IVPB SCH (08:53)
[2024-03-24] MEDS: Potassium Chloride 20 MEQ TAB PO SCH ×2 (08:54→17:34)
[2024-03-24 16:54] LABS: Potassium 4.4 mmol/L (3.5-5.1)
[2024-03-25 04:58] LABS: #Basophils 0.06 10x3/uL (0.0-0.2); %Basophils 0.4 % (0.0-1.0); %Lymphocytes 18.3 % (21.0-51.0); %Monocytes 7.1 % (0.0-10.0); %Neutrophils 71.1 % (42.0-75.0); Hematocrit 32.1 % (36.0-47.0); Hemoglobin 10.5 g/dL (12.0-16.0); Mean Corpuscular HGB CONC 32.7 g/dL (32.0-36.0); Mean Corpuscular Volume 91.7 fL (78.0-98.0); Mean Platelet Volume 10.4 fL (7.4-10.4); Platelet Count 334 10x3/uL (130-400); RBC Distribution Width 16.5 % (11.5-14.5)
[2024-03-25 05:13] LABS: ALT (SGPT) Less than 5 U/L (8-55); AST (SGOT) 19 U/L (5-34); Albumin 2.3 g/dL (3.4-4.8); Alkaline Phosphatase 67 U/L (40-110); Anion Gap 11 mmol/L (10-20); BUN (Urea Nitrogen) 7 mg/dL (9.8-20.1); Bilirubin, Total 0.4 mg/dL (0.2-1.2); Calc. Creatinine Clearance 80 mL/min (70-130); Calcium 7.5 mg/dL (7.8-10.44); Carbon Dioxide 22 mmol/L (23-31); Chloride 112 mmol/L (98-107); Estimated GFR 93; Globulin 2.2 g/dL (2.4-3.5); Glucose 87 mg/dL (83-110); Magnesium 2.1 mg/dL (1.6-2.6); Potassium 5.1 mmol/L (3.5-5.1); Protein, Total 4.5 g/dL (5.8-8.1); Sodium 140 mmol/L (136-145)
[2024-03-26 05:35] LABS: #Basophils 0.05 10x3/uL (0.0-0.2); %Basophils 0.3 % (0.0-1.0); %Eosinophils 0.4 % (0.0-10.0); %Monocytes 7.7 % (0.0-10.0); %Neutrophils 73.9 % (42.0-75.0); Hematocrit 32.2 % (36.0-47.0); Hemoglobin 10.4 g/dL (12.0-16.0); Mean Corpuscular HGB CONC 32.3 g/dL (32.0-36.0); Mean Corpuscular Hemoglobin 30.5 pg (27.0-31.0); Mean Corpuscular Volume 94.4 fL (78.0-98.0); Mean Platelet Volume 10.3 fL (7.4-10.4); Platelet Count 312 10x3/uL (130-400); RBC Distribution Width 16.3 % (11.5-14.5); Red Blood Cell (RBC) Count 3.41 mill/uL (4.20-5.40)
[2024-03-26 05:55] LABS: ALT (SGPT) 6 U/L (8-55); AST (SGOT) 12 U/L (5-34); Albumin 2.2 g/dL (3.4-4.8); Alkaline Phosphatase 70 U/L (40-110); Anion Gap 9 mmol/L (10-20); BUN (Urea Nitrogen) 9 mg/dL (9.8-20.1); Bilirubin, Total 0.5 mg/dL (0.2-1.2); Calc. Creatinine Clearance 86 mL/min (70-130); Calcium 7.5 mg/dL (7.8-10.44); Carbon Dioxide 22 mmol/L (23-31); Chloride 111 mmol/L (98-107); Estimated GFR 93; Globulin 2.2 g/dL (2.4-3.5); Glucose 96 mg/dL (83-110); Potassium 5.1 mmol/L (3.5-5.1); Protein, Total 4.4 g/dL (5.8-8.1); Sodium 137 mmol/L (136-145)
[2024-03-27] MEDS: Sodium Chloride 0.9% 500 ML IV SCH (00:12)
[2024-03-27 02:10] LABS: Bacteria/HPF 4+ HPF (None Seen); Bilirubin Negative (Negative); Blood, Urine 2+ (Negative); Clarity Turbid (Clear); Glucose, Urine (Dipstick) Normal (Negative); Ketone, Urine Negative (Negative); Leukocyte 250 Leu/uL (Negative); Nitrite Negative (Negative); Protein, Urine (Dipstick) 20 mg/dL (Neg-Trace); Specific Gravity, Urine 1.013 (1.002-1.036); pH, Urine 8.5 (5.0-9.0)
[2024-03-27] MEDS: Albumin 25% 25 GM (100 mL) BOT IVPB SCH (02:41)
[2024-03-27 04:56] LABS: #Basophils 0.05 10x3/uL (0.0-0.2); #Eosinphils Less than 0.03 10x3/uL (0.0-0.7); %Basophils 0.3 % (0.0-1.0); %Eosinophils 0.1 % (0.0-10.0); %Lymphocytes 13.5 % (21.0-51.0); %Monocytes 8.6 % (0.0-10.0); Hematocrit 27.7 % (36.0-47.0); Mean Corpuscular HGB CONC 32.5 g/dL (32.0-36.0); Mean Corpuscular Hemoglobin 30.6 pg (27.0-31.0); Mean Corpuscular Volume 94.2 fL (78.0-98.0); Mean Platelet Volume 10.7 fL (7.4-10.4); Platelet Count 215 10x3/uL (130-400); RBC Distribution Width 16.1 % (11.5-14.5); Red Blood Cell (RBC) Count 2.94 mill/uL (4.20-5.40)
[2024-03-27 05:06] LABS: ALT (SGPT) Less than 5 U/L (8-55); AST (SGOT) 8 U/L (5-34); Albumin 2.7 g/dL (3.4-4.8); Alkaline Phosphatase 68 U/L (40-110); Anion Gap 13 mmol/L (10-20); BUN (Urea Nitrogen) 9 mg/dL (9.8-20.1); Bilirubin, Total 0.7 mg/dL (0.2-1.2); Calc. Creatinine Clearance 96 mL/min (70-130); Calcium 7.8 mg/dL (7.8-10.44); Carbon Dioxide 17 mmol/L (23-31); Chloride 109 mmol/L (98-107); Estimated GFR 95; Globulin 1.9 g/dL (2.4-3.5); Glucose 93 mg/dL (83-110); Potassium 4.8 mmol/L (3.5-5.1); Protein, Total 4.6 g/dL (5.8-8.1); Sodium 134 mmol/L (136-145)
[2024-03-27 12:56] LABS: Troponin I 0.077 ng/mL (< 0.028)
[2024-03-27 12:59] LABS: #Basophils 0.05 10x3/uL (0.0-0.2); #Eosinphils Less than 0.03 10x3/uL (0.0-0.7); %Basophils 0.2 % (0.0-1.0); %Lymphocytes 9.6 % (21.0-51.0); %Monocytes 7.2 % (0.0-10.0); %Neutrophils 81.4 % (42.0-75.0); Hematocrit 28.2 % (36.0-47.0); Hemoglobin 8.8 g/dL (12.0-16.0); Mean Corpuscular HGB CONC 31.2 g/dL (32.0-36.0); Mean Corpuscular Hemoglobin 29.7 pg (27.0-31.0); Mean Corpuscular Volume 95.3 fL (78.0-98.0); Mean Platelet Volume 10.9 fL (7.4-10.4); Platelet Count 274 10x3/uL (130-400); RBC Distribution Width 16.5 % (11.5-14.5); Red Blood Cell (RBC) Count 2.96 mill/uL (4.20-5.40)
[2024-03-27] MEDS: Hydrocortisone Sod Succ/PF 100 mg/2 ml Vial IVP SCH ×2 (13:01→18:32)
[2024-03-27] MEDS: NOREPINEPHRINE 8 MG/250 ML-D5W 250 ML IVPB SCH (13:02)
[2024-03-27] MEDS ORDERED: Sodium Chloride 0.9% 1,000 ML IV SCH (13:45)
[2024-03-27] MEDS: Midodrine HCl 5 MG TAB PO SCH ×2 (15:06→18:33)
[2024-03-27] MEDS: NOREPINEPHRINE 8 MG/250 ML-D5W 250 ML ONE (15:17)
[2024-03-27] MEDS: Lactated Ringer's 500 ML IV SCH (15:17)
[2024-03-28 04:09] LABS: #Basophils 0.04 10x3/uL (0.0-0.2); #Eosinphils Less than 0.03 10x3/uL (0.0-0.7); %Basophils 0.2 % (0.0-1.0); %Lymphocytes 5.2 % (21.0-51.0); %Monocytes 4.8 % (0.0-10.0); %Neutrophils 87.5 % (42.0-75.0); Hematocrit 27.8 % (36.0-47.0); Hemoglobin 8.8 g/dL (12.0-16.0); Mean Corpuscular HGB CONC 31.7 g/dL (32.0-36.0); Mean Corpuscular Hemoglobin 29.6 pg (27.0-31.0); Mean Corpuscular Volume 93.6 fL (78.0-98.0); Mean Platelet Volume 10.5 fL (7.4-10.4); Platelet Count 344 10x3/uL (130-400); RBC Distribution Width 16.2 % (11.5-14.5); Red Blood Cell (RBC) Count 2.97 mill/uL (4.20-5.40)
[2024-03-28 04:24] LABS: ALT (SGPT) 50 U/L (8-55); AST (SGOT) 35 U/L (5-34); Albumin 2.2 g/dL (3.4-4.8); Alkaline Phosphatase 367 U/L (40-110); Anion Gap 12 mmol/L (10-20); BUN (Urea Nitrogen) 10 mg/dL (9.8-20.1); Bilirubin, Total 0.5 mg/dL (0.2-1.2); Calc. Creatinine Clearance 85 mL/min (70-130); Calcium 7.8 mg/dL (7.8-10.44); Carbon Dioxide 18 mmol/L (23-31); Chloride 112 mmol/L (98-107); Estimated GFR 93; Globulin 2.3 g/dL (2.4-3.5); Glucose 168 mg/dL (83-110); Potassium 5.4 mmol/L (3.5-5.1); Protein, Total 4.5 g/dL (5.8-8.1); Sodium 137 mmol/L (136-145)
[2024-03-28] MEDS: Albumin 25% 25 GM (100 mL) BOT IVPB SCH (16:19)
[2024-03-28] MEDS: Enoxaparin 40 MG (0.4 mL) SYRINGE SC SCH (21:21)
[2024-03-29 04:21] LABS: #Basophils Less than 0.03 10x3/uL (0.0-0.2); #Eosinphils Less than 0.03 10x3/uL (0.0-0.7); %Basophils 0.1 % (0.0-1.0); %Lymphocytes 5.4 % (21.0-51.0); %Monocytes 4.5 % (0.0-10.0); %Neutrophils 88.1 % (42.0-75.0); Hematocrit 24.6 % (36.0-47.0); Hemoglobin 7.8 g/dL (12.0-16.0); Mean Corpuscular HGB CONC 31.7 g/dL (32.0-36.0); Mean Corpuscular Hemoglobin 29.4 pg (27.0-31.0); Mean Corpuscular Volume 92.8 fL (78.0-98.0); Mean Platelet Volume 11.3 fL (7.4-10.4); Platelet Count 305 10x3/uL (130-400); RBC Distribution Width 16.3 % (11.5-14.5); Red Blood Cell (RBC) Count 2.65 mill/uL (4.20-5.40)
[2024-03-29 04:43] LABS: ALT (SGPT) 20 U/L (8-55); AST (SGOT) 12 U/L (5-34); Albumin 2.5 g/dL (3.4-4.8); Alkaline Phosphatase 236 U/L (40-110); Anion Gap 9 mmol/L (10-20); BUN (Urea Nitrogen) 11 mg/dL (9.8-20.1); Bilirubin, Total 0.5 mg/dL (0.2-1.2); Calc. Creatinine Clearance 97 mL/min (70-130); Calcium 8.2 mg/dL (7.8-10.44); Carbon Dioxide 23 mmol/L (23-31); Chloride 115 mmol/L (98-107); Estimated GFR 95; Glucose 102 mg/dL (83-110); Potassium 4.2 mmol/L (3.5-5.1); Protein, Total 4.5 g/dL (5.8-8.1); Sodium 143 mmol/L (136-145)
[2024-03-29] MEDS: Digoxin 0.5 MG/2 ML AMP SLOW IVP SCH (05:05)
[2024-03-29] MEDS: Metoprolol Tartrate 5 MG (5 mL) VIAL IVP SCH (06:01)
[2024-03-29] MEDS: Amiodarone 450 MG in Dextrose 5% in Water 250 ML IVPB SCH (16:12)
[2024-03-30 06:13] LABS: #Basophils Less than 0.03 10x3/uL (0.0-0.2); #Eosinphils Less than 0.03 10x3/uL (0.0-0.7); %Basophils 0.1 % (0.0-1.0); %Lymphocytes 4.6 % (21.0-51.0); %Monocytes 2.8 % (0.0-10.0); %Neutrophils 90.6 % (42.0-75.0); Hematocrit 25.8 % (36.0-47.0); Hemoglobin 8.2 g/dL (12.0-16.0); Mean Corpuscular HGB CONC 31.8 g/dL (32.0-36.0); Mean Corpuscular Hemoglobin 29.6 pg (27.0-31.0); Mean Corpuscular Volume 93.1 fL (78.0-98.0); Mean Platelet Volume 11.8 fL (7.4-10.4); Platelet Count 359 10x3/uL (130-400); RBC Distribution Width 16.1 % (11.5-14.5); Red Blood Cell (RBC) Count 2.77 mill/uL (4.20-5.40)
[2024-03-30 06:33] LABS: ALT (SGPT) 19 U/L (8-55); AST (SGOT) 13 U/L (5-34); Albumin 2.3 g/dL (3.4-4.8); Alkaline Phosphatase 182 U/L (40-110); Anion Gap 10 mmol/L (10-20); BUN (Urea Nitrogen) 12 mg/dL (9.8-20.1); Bilirubin, Total 0.5 mg/dL (0.2-1.2); Calc. Creatinine Clearance 91 mL/min (70-130); Calcium 8.1 mg/dL (7.8-10.44); Carbon Dioxide 20 mmol/L (23-31); Chloride 116 mmol/L (98-107); Estimated GFR 94; Globulin 2.3 g/dL (2.4-3.5); Glucose 94 mg/dL (83-110); Protein, Total 4.6 g/dL (5.8-8.1); Sodium 142 mmol/L (136-145)
[2024-03-30] MEDS: Amiodarone 200 MG TAB PO SCH ×2 (09:52→15:30)
[2024-03-31 06:13] LABS: #Basophils 0.03 10x3/uL (0.0-0.2); #Eosinphils Less than 0.03 10x3/uL (0.0-0.7); %Basophils 0.2 % (0.0-1.0); %Lymphocytes 6.1 % (21.0-51.0); %Monocytes 3.9 % (0.0-10.0); %Neutrophils 87.9 % (42.0-75.0); Hematocrit 28.4 % (36.0-47.0); Hemoglobin 9.1 g/dL (12.0-16.0); Mean Corpuscular Hemoglobin 29.6 pg (27.0-31.0); Mean Corpuscular Volume 92.5 fL (78.0-98.0); Mean Platelet Volume 11.7 fL (7.4-10.4); Platelet Count 405 10x3/uL (130-400); RBC Distribution Width 16.2 % (11.5-14.5); Red Blood Cell (RBC) Count 3.07 mill/uL (4.20-5.40)
[2024-03-31 06:26] LABS: ALT (SGPT) 15 U/L (8-55); AST (SGOT) 11 U/L (5-34); Albumin 2.2 g/dL (3.4-4.8); Alkaline Phosphatase 162 U/L (40-110); Anion Gap 11 mmol/L (10-20); BUN (Urea Nitrogen) 11 mg/dL (9.8-20.1); Bilirubin, Total 0.5 mg/dL (0.2-1.2); Calc. Creatinine Clearance 91 mL/min (70-130); Calcium 8.1 mg/dL (7.8-10.44); Carbon Dioxide 21 mmol/L (23-31); Chloride 116 mmol/L (98-107); Estimated GFR 95; Globulin 2.4 g/dL (2.4-3.5); Glucose 91 mg/dL (83-110); Potassium 3.8 mmol/L (3.5-5.1); Protein, Total 4.6 g/dL (5.8-8.1); Sodium 144 mmol/L (136-145)
[2024-04-01 05:15] LABS: #Basophils Less than 0.03 10x3/uL (0.0-0.2); #Eosinphils Less than 0.03 10x3/uL (0.0-0.7); %Basophils 0.1 % (0.0-1.0); %Lymphocytes 6.1 % (21.0-51.0); %Monocytes 2.8 % (0.0-10.0); %Neutrophils 88.8 % (42.0-75.0); Hematocrit 27.2 % (36.0-47.0); Hemoglobin 8.6 g/dL (12.0-16.0); Mean Corpuscular HGB CONC 31.6 g/dL (32.0-36.0); Mean Corpuscular Hemoglobin 30.3 pg (27.0-31.0); Mean Corpuscular Volume 95.8 fL (78.0-98.0); Mean Platelet Volume 11.4 fL (7.4-10.4); Platelet Count 390 10x3/uL (130-400); Red Blood Cell (RBC) Count 2.84 mill/uL (4.20-5.40)
[2024-04-01 06:06] LABS: ALT (SGPT) 12 U/L (8-55); AST (SGOT) 11 U/L (5-34); Albumin 2.2 g/dL (3.4-4.8); Alkaline Phosphatase 130 U/L (40-110); Anion Gap 13 mmol/L (10-20); BUN (Urea Nitrogen) 12 mg/dL (9.8-20.1); Bilirubin, Total 0.5 mg/dL (0.2-1.2); Calc. Creatinine Clearance 89 mL/min (70-130); Calcium 7.9 mg/dL (7.8-10.44); Carbon Dioxide 22 mmol/L (23-31); Chloride 115 mmol/L (98-107); Estimated GFR 94; Globulin 2.1 g/dL (2.4-3.5); Glucose 96 mg/dL (83-110); Potassium 3.7 mmol/L (3.5-5.1); Protein, Total 4.3 g/dL (5.8-8.1); Sodium 146 mmol/L (136-145)
[2024-04-02 08:09] LABS: #Basophils Less than 0.03 10x3/uL (0.0-0.2); #Eosinphils Less than 0.03 10x3/uL (0.0-0.7); %Basophils 0.1 % (0.0-1.0); %Lymphocytes 7.1 % (21.0-51.0); %Monocytes 3.9 % (0.0-10.0); %Neutrophils 86.6 % (42.0-75.0); Hematocrit 30.9 % (36.0-47.0); Hemoglobin 9.6 g/dL (12.0-16.0); Mean Corpuscular HGB CONC 31.1 g/dL (32.0-36.0); Mean Corpuscular Hemoglobin 29.9 pg (27.0-31.0); Mean Corpuscular Volume 96.3 fL (78.0-98.0); Mean Platelet Volume 10.8 fL (7.4-10.4); Platelet Count 429 10x3/uL (130-400); RBC Distribution Width 15.9 % (11.5-14.5); Red Blood Cell (RBC) Count 3.21 mill/uL (4.20-5.40)
[2024-04-02 08:42] LABS: ALT (SGPT) 8 U/L (8-55); AST (SGOT) 13 U/L (5-34); Albumin 2.4 g/dL (3.4-4.8); Alkaline Phosphatase 122 U/L (40-110); Anion Gap 9 mmol/L (10-20); BUN (Urea Nitrogen) 12 mg/dL (9.8-20.1); Bilirubin, Total 0.5 mg/dL (0.2-1.2); Calc. Creatinine Clearance 83 mL/min (70-130); Calcium 7.9 mg/dL (7.8-10.44); Carbon Dioxide 27 mmol/L (23-31); Chloride 113 mmol/L (98-107); Estimated GFR 93; Globulin 2.2 g/dL (2.4-3.5); Glucose 94 mg/dL (83-110); Potassium 3.4 mmol/L (3.5-5.1); Protein, Total 4.6 g/dL (5.8-8.1); Sodium 146 mmol/L (136-145)
[2024-04-02] MEDS: Potassium Chloride 20 MEQ TAB PO SCH (11:11)
[2024-04-02] MEDS: Hydrocortisone Sod Succ/PF 100 mg/2 ml Vial IVP SCH (11:14)
[2024-04-02] MEDS ORDERED: Fleet Saline Enema 133 ML BOT PR PRN (12:18)
[2024-04-02 15:24] VITALS: BMI 22.3
[2024-04-02] MEDS: Senokot S 8.6-50 MG TAB PO SCH (20:33)
[2024-04-02] MEDS: Pantoprazole DR 40 MG TAB PO SCH (20:33)
[2024-04-03 06:08] LABS: #Basophils 0.04 10x3/uL (0.0-0.2); #Eosinphils Less than 0.03 10x3/uL (0.0-0.7); %Basophils 0.4 % (0.0-1.0); %Eosinophils 0.1 % (0.0-10.0); %Lymphocytes 7.6 % (21.0-51.0); %Monocytes 2.7 % (0.0-10.0); %Neutrophils 86.5 % (42.0-75.0); Hematocrit 34.2 % (36.0-47.0); Hemoglobin 10.8 g/dL (12.0-16.0); Mean Corpuscular HGB CONC 31.6 g/dL (32.0-36.0); Mean Platelet Volume 11.6 fL (7.4-10.4); Platelet Count 397 10x3/uL (130-400); RBC Distribution Width 16.3 % (11.5-14.5)
[2024-04-03 06:56] LABS: ALT (SGPT) 13 U/L (8-55); AST (SGOT) 17 U/L (5-34); Albumin 2.4 g/dL (3.4-4.8); Alkaline Phosphatase 125 U/L (40-110); Anion Gap 12 mmol/L (10-20); BUN (Urea Nitrogen) 11 mg/dL (9.8-20.1); Bilirubin, Total 0.5 mg/dL (0.2-1.2); Calc. Creatinine Clearance 79 mL/min (70-130); Calcium 7.8 mg/dL (7.8-10.44); Carbon Dioxide 23 mmol/L (23-31); Chloride 110 mmol/L (98-107); Estimated GFR 92; Globulin 2.5 g/dL (2.4-3.5); Glucose 103 mg/dL (83-110); Potassium 3.3 mmol/L (3.5-5.1); Protein, Total 4.9 g/dL (5.8-8.1); Sodium 142 mmol/L (136-145)
[2024-04-03 08:25] LABS: Magnesium 1.6 mg/dL (1.6-2.6)
[2024-04-03] MEDS: Potassium Chloride 20 MEQ TAB PO SCH (08:29)
[2024-04-03] MEDS: Magnesium 2 GM/50 ML(in water) 2 GM in Premix 1 BAG IVPB SCH (09:43)
[2024-04-03] MEDS: Amiodarone 200 MG TAB PO SCH (21:35)
[2024-04-05 08:45] LABS: Anion Gap 15 mmol/L (10-20); BUN (Urea Nitrogen) 11 mg/dL (9.8-20.1); Calc. Creatinine Clearance 79 mL/min (70-130); Calcium 7.7 mg/dL (7.8-10.44); Carbon Dioxide 24 mmol/L (23-31); Chloride 107 mmol/L (98-107); Estimated GFR 92; Glucose 94 mg/dL (83-110); Potassium 3.3 mmol/L (3.5-5.1); Sodium 143 mmol/L (136-145)
[2024-04-05] MEDS: Potassium Chloride 20 MEQ TAB PO SCH (09:12)
[2024-04-05 12:15] VITALS: BP 121/77; TEMP 98.1
== END 2024-04-05 20:36 | DRG 871 ==
LOC: ERS 14:59 → 2NO 18:51 → MSONC 03-18 19:26 → IMCU/EMU 03-18 22:41 → MSONC 03-18 23:14 → IMCU/EMU 03-19 08:06 → 2NO 03-20 16:46 → CCU 03-22 00:42 → 2NO 03-23 03:25 → CCU 03-27 12:36 → IMCU/EMU 03-28 23:58 → T4-B 04-02 16:02
PROVIDERS: ADMIT Internal Medicine; ATTEND Internal Medicine
PROC: 3E03329 Introduction of Other Anti-infective into Peripheral Vein, Percutaneous Approach (ICD-10-PCS; 2024-03-17)
PROC: 4A033R1 Measurement of Arterial Saturation, Peripheral, Percutaneous Approach (ICD-10-PCS; 2024-03-18)
PROC: 30233N1 Transfusion of Nonautologous Red Blood Cells into Peripheral Vein, Percutaneous Approach (ICD-10-PCS; 2024-03-19)
PROC: 30233J1 Transfusion of Nonautologous Serum Albumin into Peripheral Vein, Percutaneous Approach (ICD-10-PCS; 2024-03-19)
PROC: 0DC38ZZ Extirpation of Matter from Lower Esophagus, Via Natural or Artificial Opening Endoscopic (ICD-10-PCS; principal; 2024-03-21)
PROC: 0D738ZZ Dilation of Lower Esophagus, Via Natural or Artificial Opening Endoscopic (ICD-10-PCS; 2024-03-21)
PROC: 3E033XZ Introduction of Vasopressor into Peripheral Vein, Percutaneous Approach (ICD-10-PCS; 2024-03-21)
DX: A41.1 Sepsis due to other specified staphylococcus (principal); L89.153 Pressure ulcer of sacral region, stage 3; R65.21 Severe sepsis with septic shock; N17.9 Acute kidney failure, unspecified; K56.609 Unspecified intestinal obstruction, unspecified as to partial versus complete obstruction; E87.0 Hyperosmolality and hypernatremia; I47.10 Supraventricular tachycardia, unspecified; J90 Pleural effusion, not elsewhere classified; E87.20 Acidosis, unspecified; N13.6 Pyonephrosis; A41.51 Sepsis due to Escherichia coli [E. coli]; Z66 Do not resuscitate; I10 Essential (primary) hypertension; I48.0 Paroxysmal atrial fibrillation; R29.6 Repeated falls; K22.2 Esophageal obstruction; D64.9 Anemia, unspecified; G35 Multiple sclerosis; K59.00 Constipation, unspecified; R33.9 Retention of urine, unspecified; L89.611 Pressure ulcer of right heel, stage 1; E87.6 Hypokalemia; E87.8 Other disorders of electrolyte and fluid balance, not elsewhere classified; I95.9 Hypotension, unspecified; E88.09 Other disorders of plasma-protein metabolism, not elsewhere classified; F03.90 Unspecified dementia, unspecified severity, without behavioral disturbance, psychotic disturbance, mood disturbance, and anxiety; M81.0 Age-related osteoporosis without current pathological fracture; E87.5 Hyperkalemia; D72.829 Elevated white blood cell count, unspecified; Z88.5 Allergy status to narcotic agent; Z79.899 Other long term (current) drug therapy; Z98.890 Other specified postprocedural states; Z90.49 Acquired absence of other specified parts of digestive tract
CPT/HCPCS: 36415; 36416; 36430; 36600; 51702; 70450; 71045; 71275; 74018; 74176; 76770; 80048; 80053; 80202; 81001; 81003; 81015; 82140; 82533; 82607; 82728; 82805; 83540; 83550; 83605; 83690; 83735; 84145; 84443; 84484; 85025; 85379; 86850; 86900; 86901; 87040; 87077; 87086; 87149; 87186; 87449; 87899; 93005; 93010; 93306; 96374; 97139; C1726; C9113; J0282; J0696; J1160; J1650; J1720; J2185; J2704; J3370; J3475; J3480; J3490; J7030; J7050; J7070; J7120; J7999; P9016; P9047; Q0162; Q9967